=== PATIENT | female | born 1995 | race Caucasian/White ===

== ENCOUNTER 2018-03-07 10:22 | Inpatient (IN) | payer BC, OTHER ==
[~2018-03-07] VITALS: Ht 172.7 cm; Wt 66.7 kg
--- NOTE | 2018-03-08 23:00 | NUR ---
INTAKE ASSESSMENT Pt presented with extreme anxiety,restlessness,c/o having hot and cold flashes,general bodyache,accompanied with nasal drainage. Pt states using multiple substances including heroin,xanax,methadone,cocaine,marijuana and also had a mixed drink today.V/S are stable,speech is clear and coherent,pt is able to ambulate with a steady gait.Pt is in a stable condition to proceed to [facility].
[2018-03-09] VITALS: BP 124/69
--- NOTE | 2018-03-09 | NUR ---
ADMISSION NOTE HT=5 FEET, 8 INCHES. WT= 147 POUNDS. ALLERGIES - PENICILLIN,AMOXICILLIN,LAMICTAL. REGULAR DIET. COWS=8. Admiiting 23 y/o female to [facility] for medically supervised withdrawals from Opioids.Pt stated that she has been using multiple drugs including Heroin,Methadone,Cocaine,Xanax and Marijuana for 1.5 years.Pt also drinks alcohol occasionally and stated she had a mixed drink on 03-08-18.Pt is alert and oriented x 4,presented in intake with anxiety,restlessness,c/o having hot and cold flashes,body ache and tremors.Pt [place] hx of Anxiety,Bipolar disorder,ADHD, PTSD and withdrawal induced seizures.Skin is warm and moist to touch.Pt has multiple IV salgado on both forearms and neck.She has an abscess on her right forearm,redness on her forehead and right thigh area.Respirations are even and non labored,lungs are clear bilaterally;abdomen is soft and palpable with bowel sounds present in all 4 quadrants.No c/o N/V/D noted.Pt denies AH/VH/SI/HI.Pt does not have a PCP.Pt oriented to room and unit,care plan and safety checks initiated,education material and snacks provided.Dr Florence is made aware of admission.All safety measures in place with bed locked in the lowest position,side rails up x 2,call fraga within reach,will continue to monitor. DRUG USE HX 1)HEROIN-PT USES 1 GRAM OF HEROIN IV DAILY FOR 1.5 YEARS. LAST USED ON 03-08-18 AT 1500. 2)METHADONE-40 TO 80 MGS DAILY PO. LAST USED 40 MGS PO ON 03-08-18 AT 1600. 3)XANAX-2 TO 4 MGS PO OFF AND ON . LAST TAKEN 2 MGS PO A FEW DAYS AGO. 4)COCAINE-1 GRAM IV DAILY. LAST USED ON 03-07-18. 5)MARIJUANA-1 TO 3 GRAMS DAILY. LAST USED ON 03-08-18 AT 1500. DETOX HX GATEWAYS IN 2017 TRANSFORMATIONS IN 2013 AND 2013.
[2018-03-09] MEDS ORDERED: MAGNESIUM HYDROXIDE 30 ML LIQUID UDC PO PRN (00:30)
[2018-03-09] MEDS ORDERED: MIRALAX 17 GM POWD.PACK PO PRN (00:30)
[2018-03-09] MEDS ORDERED: ONDANSETRON 4 MG/2 ML VIAL IM PRN (00:30)
[2018-03-09] MEDS ORDERED: NICOTINE 14 MG/24HR PATCH TD PRN (00:30)
[2018-03-09] MEDS ORDERED: LOPERAMIDE HCL 2 MG CAPSULE PO PRN ×2 (00:30)
[2018-03-09] MEDS ORDERED: LORAZEPAM 2 MG/1 ML VIAL IM PRN (00:30)
[2018-03-09] MEDS ORDERED: ONDANSETRON ODT 4 MG TAB.RAPDIS SL PRN (00:30)
[2018-03-09] MEDS ORDERED: HYDROXYZINE PAMOATE 25 MG CAPSULE PO PRN (00:30)
[2018-03-09] MEDS ORDERED: DICYCLOMINE HCL 20 MG TABLET PO PRN (00:30)
[2018-03-09] MEDS ORDERED: MAG HYDROX/AL HYDROX/SIMETH 30 ML LIQUID UDC PO PRN (00:30)
[2018-03-09] MEDS ORDERED: CLONIDINE HCL 0.1 MG TABLET PO ONE (00:45)
[2018-03-09] MEDS ORDERED: LORAZEPAM 1 MG TABLET PO ONE (00:45)
[2018-03-09 00:56] LABS: *AMPHETAMINE, URINE NEGATIVE (NEGATIVE); *BARBITURATE, URINE NEGATIVE (NEGATIVE); *CANNABINOID, URINE POSITIVE (NEGATIVE); *COCCAINE, URINE POSITIVE (NEGATIVE); *OPIATE, URINE POSITIVE (NEGATIVE); *PHENCYCLIDINE SCREEN,URINE NEGATIVE (NEGATIVE)
[2018-03-09 00:58] LABS: *URINE HCG, QUAL NEGATIVE (NEGATIVE)
[2018-03-09 01:24] LABS: ALANINE AMINOTRANSFERASE 36 U/L (14-59); ALKALINE PHOSPHATASE 111 U/L (50-136); ASPARTATE AMINOTRANSFERASE 49 U/L (15-37); BILIRUBIN,TOTAL 0.6 mg/dL (0.2-1.0); CARBON DIOXIDE 33 mmol/L (21-32); CHLORIDE 97 mmol/L (98-107); CREATININE 0.7 mg/dL (0.6-1.3); GLUCOSE 101 mg/dL (74-106); MAGNESIUM 1.9 mg/dL (1.8-2.4); TOTAL PROTEIN, SERUM 7.6 g/dL (6.4-8.2); UREA NITROGEN, BLOOD 7 mg/dL (7-18)
[2018-03-09 01:25] LABS: BASOPHILS % (AUTO) 0.8 % (0.0-2.0); EOSINOPHILS # (AUTO) 0.1 K/uL (0.0-0.7); EOSINOPHILS % (AUTO) 2.1 % (0.0-7.0); HEMATOCRIT 33.7 % (31.2-41.9); HEMOGLOBIN 11.6 g/dL (10.9-14.3); LYMPHOCYTES # (AUTO) 0.9 K/uL (20.0-40.0); LYMPHOCYTES % (AUTO) 27.8 % (20.5-51.5); MEAN CORPUSCULAR HEMOGLOBIN 27.7 uug (24.7-32.8); MEAN CORPUSCULAR HGB CONC 34 g/dL (32.3-35.6); MEAN CORPUSCULAR VOLUME 80.3 fL (75.5-95.3); MONOCYTES # (AUTO) 0.3 K/uL (2.0-10.0); MONOCYTES % (AUTO) 9.4 % (0.0-11.0); NEUTROPHILS % (AUTO) 59.9 % (38.5-71.5); PLATELET COUNT (AUTO) 184 K/uL (179-408); WHITE BLOOD COUNT (AUTO) 3.3 K/uL (3.8-11.8)
[2018-03-09] MEDS ORDERED: DEXT5TAB15 PO (01:26)
[2018-03-09] MEDS ORDERED: GABA800T2 PO (01:26)
[2018-03-09] MEDS ORDERED: TOPI100T PO (01:26)
[2018-03-09] MEDS ORDERED: ARIP5TAB10 PO (01:26)
[2018-03-09 01:37] LABS: THYROID STIMULATING HORMONE 0.276 mIU/mL (0.358-3.740)
[2018-03-09 01:54] LABS: ETHANOL < 3 MG/DL (0-0)
[2018-03-09] MEDS ORDERED: POTASSIUM CHLORIDE 20 MEQ TAB.PRT.SR PO ONE ×2 (02:00→09:00)
[2018-03-09] MEDS: BUPRENORPHINE HCL 2 MG TAB.SUBL SL PRN ×2 (03:48→23:57)
--- NOTE | 2018-03-09 03:49 | NUR ---
PRN SUBUTEX 4 MG SL GIVEN FOR CIWA 12.WILL MONITOR FOR EFFECTIVENESS.
[2018-03-09 04:00] VITALS: BP 110/78
--- NOTE | 2018-03-09 04:50 | NUR ---
SUBUTEX REASSESSMENT PT IS CALM AND RESTING IN BED WITH EYES CLOSE.BREATHING IS EVEN AND NON LABORED.NO S/S OF DISTRESS NOTED.UNABLE TO REASSESS FOR COWS AT THIS TIME.WILL CONTINUE TO MONITOR.
[2018-03-09] MEDS: IBUPROFEN 600 MG TABLET PO PRN (05:53)
[2018-03-09] MEDS: CLONIDINE HCL 0.1 MG TABLET PO PRN (05:53)
[2018-03-09] MEDS: METHOCARBAMOL 750 MG TABLET PO PRN ×2 (05:53→23:56)
[2018-03-09] MEDS: LORAZEPAM 1 MG TABLET PO PRN ×2 (05:53→20:58)
--- NOTE | 2018-03-09 05:55 | NUR ---
PRN MEDS PT C/O INCREASED ANXIETY,RESTLESSNESS,CHILLS,MUSCLES ACHES,HEADACHE AND TREMORS.PRN CLONIDINE,MOTRIN AND ROBAXIN GIVEN ORDERED.PRN ATIVAN GIVEN FOR CIWA 12.WILL MONITOR FOR EFFECTIVENESS.
[2018-03-09] MEDS ORDERED: CLON0.1T PO (06:22)
[2018-03-09] MEDS ORDERED: EMOL20CR TP (06:22)
[2018-03-09] MEDS ORDERED: BIOT1CAP3 PO (06:22)
[2018-03-09] MEDS ORDERED: TEVA (06:22)
--- NOTE | 2018-03-09 07:00 | NUR ---
PRN MEDS ARE EFFECTIVE IN REDUCING SYMPTOMS.PT IS CALM AND RESTING IN BED AT THIS TIME,APPEARS TO BE SLEEPING.WILL CONTINUE TO MONITOR
--- NOTE | 2018-03-09 07:30 | NUR ---
Start of Shift Manager Critical Care received report on 23 year old female admitted on 03/08/18 for medical management of Benzodiazepine, Opiate and Cocaine withdrawals. Pt endorses allergies to PCN, Amoxicillian and Lamotrigine, full code and regular diet. Pt denies any PMH, except for [id number] related seizures, with a PPH to include anxiety, PTSD, ADHD and Bipolar DO. Pt has an abscess on right forearm. Pt was administered Ativan(anxiety), Clonidine(anxiety), Motrin(pain) and Subutex(withdrawals) as PRN on NOC, per report. Last reported COWS 12. Pt to be started on Subutex taper this am. Manager Critical Care encounters pt in pts room. Pt is A/O x4, makes her needs known and is demanding, irritable and entitled. Pt demanding to smoke. Bed in low position with wheels locked and side rails up for safety. Will continue to monitor, support and encourage according to plan of care.
--- NOTE | 2018-03-09 07:35 | NUR ---
END OF SHIFT END OF SHIFT PT IS A 23 Y/O FEMALE ADMITTED FOR OPIOID WITHDRAWALS.SHE RECEIVED PRN MEDS:ATIVAN,SUBUTEX,CLONIDINE,MOTRIN AND ROBAXIN FOR WITHDRAWAL SYMPTOMS DURING THE NIGHT.LAST COWS 12 AT 0400.PT SLEPT 5 HRS,FLUID INTAKE WAS 500 MLS,VOIDED X 1.PT IS A/O X 4.PT ENDORSED TO AM SHIFT NURSE IN A STABLE CONDITION
[2018-03-09 08:17] VITALS: BP 109/58
[2018-03-09] MEDS: GABAPENTIN 400 MG CAPSULE PO SCH ×3 (08:33→20:59)
[2018-03-09] MEDS: SULFAMETH/TRIMETH 800/160 MG TABLET PO SCH ×2 (08:33→20:57)
[2018-03-09] MEDS: LACTOBACILLUS RHAMNOSUS GG 1 EACH CAPSULE PO SCH ×2 (08:33→20:57)
[2018-03-09] MEDS: NEOMY/BACITRAC/POLYMI OINT 28.35 GM TUBE TOP SCH ×2 (08:37→16:01)
[2018-03-09] MEDS ORDERED: BUPRENORPHINE HCL 2 MG TAB.SUBL SL SCH (09:00)
[2018-03-09 12:30] VITALS: BP 125/53
[2018-03-09] MEDS: BUPRENORPHINE HCL 2 MG TAB.SUBL SL SCH ×3 (13:17→20:59)
[2018-03-09 16:51] VITALS: BP 101/56
--- NOTE | 2018-03-09 18:44 | NUR ---
End of Shift Marketing And Outreach Coordinator provided report on 23 year old female admitted on 03/08/18 for medical management of Benzodiazepine, Opiate and Cocaine withdrawals. Pt endorses allergies to PCN, Amoxicillian and Lamotrigine, full code and regular diet. Pt denies any PMH, except for withdrawal related seizures, with a PPH to include anxiety, PTSD, ADHD and Bipolar DO. Pt has an abscess on right forearm, assessed by surgical ELECTRIFICATION ADVISER, with no new orders received. NO PRN medication administered this shift. Pt was started on a Subutex taper and is tolerating well, Last COWS 15, recorded at 1600. Pt is A/O x4, makes her needs known and is demanding, irritable and entitled. Pt has rested thru out the shift and is lethargic and somnolent at times. Pt is appropriate in responses and participates in treatment. Bed in low position with wheels locked and side rails up for safety.
--- NOTE | 2018-03-09 19:30 | NUR ---
Start of Shift Pt is a 23 y/o female admitted 03/08/18 for medically managed withdrawal/detox from Xanax, Heroin, Methamphetamine salts, Cocaine/Marijuana. Endorsement recd from day nurse. Pt is a full code, on a regular diet with allergies to PCNs, Amoxicillin, and Lamotrigine. Pt is on day 1 of a 5 day Subutex taper with Ativan PRN. Hx of withdrawal induced seizures, safety/seizure precautions in place. Pt found in room in bed, arousable to loud voice. Pt extremely drowsy, no c/os at present. Evening med reviewed with pt, no PRN requests made. Will continue to monitor promptly attending to all pt needs
[2018-03-09 20:00] VITALS: BP 118/50
[2018-03-09] MEDS: TOPIRAMATE 100 MG TABLET PO SCH (20:58)
[2018-03-09] MEDS ORDERED: ARIPIPRAZOLE 5 MG TABLET PO SCH (21:00)
[2018-03-09] MEDS: TRAZODONE 50 MG TABLET PO PRN (23:56)
--- NOTE | 2018-03-09 23:57 | NUR ---
PRN Meds Subutex 4mg SL for CIWA of 17, Robaxin 750mg PO for B/A /, Trazodone 50mg PO for insomnia administered. Will continue to monitor, reassessing in 1 hour.
[2018-03-10] VITALS: BP 121/63
--- NOTE | 2018-03-10 00:57 | NUR ---
PRN Meds Subutex 4mg SL, Robaxin 750mg PO and Trazodone 50mg PO given 1 hour prior. At present, pt in bed in darkened rm, reports feeling drowsy. Meds effective
--- NOTE | 2018-03-10 04:00 | NUR ---
VS's, COWS Deferred VS's and COWS deferred r/t pt sleeping/refused. RR 14, even and nonlabored. Will continue to monitor patient until morning endorsement.
--- NOTE | 2018-03-10 07:04 | NUR ---
End of Shift Pt is a 23 y/o female admitted 03/08/18 for medically managed withdrawal/detox from Xanax, Heroin, Methamphetamine salts, Cocaine/Marijuana. Endorsement recd from day nurse. Pt is a full code, on a regular diet with allergies to PCNs, Amoxicillin, and Lamotrigine. Pt is starting day 2 of a 5 day Subutex taper with Ativan PRN, tolerates with additional PRNs. Hx of withdrawal induced seizures, safety/seizure/fall precautions in place. Green/Yellow abcess on anterior r forearm-healing (cocaine injection site). PRN Ativan 2mg PO given with evening meds, PRN Subutex 4mg SL, Robaxin and Trazodone given 2 hours after evening schedule dose for CIWA of 17 and is A&O x 4. Pt anxious and agitated at time, claimed to be sick and not going to be able to make it till morning scheduled dose. COWS 17 at 0000. Pt insisting on showering before PRN administration at 2355, appearing intoxicated before falling asleep. Pt slept for 5 hours, with 500 mls intake, 1 void and no BMs. Report given in endorsement to day nurse
[2018-03-10 07:08] LABS: HEPATITIS B SURFACE AG Negative (Negative)
--- NOTE | 2018-03-10 07:30 | NUR ---
Start of Shift Dean Of Instruction received report on 23 year old female admitted on 03/08/18 for medical management of Benzodiazepine, Opiate and Cocaine withdrawals. Pt endorses allergies to PCN, Amoxicillian and Lamotrigine, full code and regular diet. Pt denies any PMH, except for withdrawal related seizures, with a PPH to include anxiety, PTSD, ADHD and Bipolar DO. Pt has an abscess on right forearm, examined by NO yesterday with no new orders received. Pt currently on anti-biotics. Pt was administered Ativan(anxiety), Subutex(withdrawals), Robaxin(muscle spasms) and Trazodone(insomnia) as PRN medications on NOC, per report. Last reported COWS 17, last CIWA 17, due to PRN Ativan. Currently on Subutex taper, tolerating well. Dean Of Instruction encounters pt in pts room. Pt is A/O x4, makes her needs known. Linear thought process, clear of speech pattern. Pt is calm and cooperative and pleasant this am. Anxious, with flat affect and depressed mood. Pt has complaints of muscle spasms, nausea, anxiety and sweats. Bed in low position with wheels locked and side rails up for safety. Will continue to monitor, support and encourage according to plan of care.
[2018-03-10 08:10] VITALS: BP 133/70
[2018-03-10] MEDS: TOPIRAMATE 100 MG TABLET PO SCH ×2 (08:22→21:36)
[2018-03-10] MEDS: SULFAMETH/TRIMETH 800/160 MG TABLET PO SCH ×2 (08:22→21:36)
[2018-03-10] MEDS: LACTOBACILLUS RHAMNOSUS GG 1 EACH CAPSULE PO SCH ×2 (08:22→21:36)
[2018-03-10] MEDS: NEOMY/BACITRAC/POLYMI OINT 28.35 GM TUBE TOP SCH ×2 (08:22→17:19)
[2018-03-10] MEDS: BUPRENORPHINE HCL 2 MG TAB.SUBL SL SCH ×3 (08:23→21:41)
[2018-03-10] MEDS: GABAPENTIN 400 MG CAPSULE PO SCH ×3 (08:23→21:36)
[2018-03-10] MEDS ORDERED: TUBERCULIN,PURIF.PROT.DERIV. 5 TU/0.1 ML TEST ID ONE (09:00)
[2018-03-10] MEDS ORDERED: BUPRENORPHINE HCL 2 MG TAB.SUBL SL SCH ×2 (09:00→15:00)
[2018-03-10 09:20] LABS: EOSINOPHILS # (AUTO) 0.1 K/uL (0.0-0.7); MEAN CORPUSCULAR VOLUME 81.6 fL (75.5-95.3); MONOCYTES # (AUTO) 0.4 K/uL (2.0-10.0)
[2018-03-10 09:30] LABS: BILIRUBIN,DIRECT 0.1 mg/dL (0.0-0.2); BILIRUBIN,TOTAL 0.4 mg/dL (0.2-1.0); MAGNESIUM 1.9 mg/dL (1.8-2.4); POTASSIUM 4.1 mmol/L (3.5-5.1); TOTAL PROTEIN, SERUM 8.1 g/dL (6.4-8.2)
[2018-03-10 09:33] LABS: BASOPHILS % (AUTO) 0.9 % (0.0-2.0); EOSINOPHILS % (AUTO) 3.1 % (0.0-7.0); LYMPHOCYTES % (AUTO) 26.9 % (20.5-51.5); MEAN CORPUSCULAR HEMOGLOBIN 27.3 uug (24.7-32.8); MEAN CORPUSCULAR HGB CONC 34 g/dL (32.3-35.6); MONOCYTES % (AUTO) 10.6 % (0.0-11.0); NEUTROPHILS # (AUTO) 2.3 K/uL (1.8-8.9); NEUTROPHILS % (AUTO) 58.5 % (38.5-71.5); PLATELET COUNT (AUTO) 216 K/uL (179-408); WHITE BLOOD COUNT (AUTO) 3.9 K/uL (3.8-11.8)
[2018-03-10 09:34] LABS: HEMATOCRIT 37.5 % (31.2-41.9); HEMOGLOBIN 12.6 g/dL (10.9-14.3)
[2018-03-10 09:40] LABS: THYROID STIMULATING HORMONE 0.371 mIU/mL (0.358-3.740)
[2018-03-10] MEDS: ARIPIPRAZOLE 5 MG TABLET PO SCH (09:53)
--- NOTE | 2018-03-10 09:58 | NUR ---
Abscess Dressing Pt seen by Dr. Roldan CYBER SYSTEMS ENGINEER, Trena. CYBER SYSTEMS ENGINEER recommended possible incision and drainage of upper right thigh, dependent on evaluation tomorrow. CYBER SYSTEMS ENGINEER provided orders for K-Pad. Pt requested to cover right wrist abscess to avoid picking at scab. CYBER SYSTEMS ENGINEER recommended a gauze dressing to cover abscess. Branch Service Representative flushed area with normal saline and covered with 4x4 gauze, pt tolerated well. Will continue to monitor, support and encourage according to plan of care.
--- NOTE | 2018-03-10 10:07 | NUR ---
PRN Ativan Pt complain of anxiety 610. Director External Communications performed a CIWA assessment with a score of 14. Director External Communications administered 2mg per MD order. Pt tolerated well. Will continue to monitor, support and encourage according to plan of care.
[2018-03-10] MEDS: LORAZEPAM 1 MG TABLET PO PRN ×2 (10:27→17:19)
--- NOTE | 2018-03-10 11:25 | NUR ---
Ativan Re-Assessment CIWA re-assessment at 11, medication effective. Pt states her anxiety has improved, " feeling a bit better." Will continue to monitor, support and encourage according to plan of care.
[2018-03-10] MEDS ORDERED: MIRALAX 17 GM POWD.PACK PO ONE (12:00)
[2018-03-10] MEDS ORDERED: CLONIDINE HCL 0.1 MG TABLET PO ONE (12:00)
[2018-03-10 12:30] VITALS: BP 122/88
[2018-03-10] MEDS: DOCUSATE SODIUM 250 MG CAPSULE PO SCH (13:02)
--- NOTE | 2018-03-10 13:30 | NUR ---
K-Pad Dance Artist set up machine and pre-heated machine. Pt wrapped pad around her affected right thigh and began resting. Pt had pad on for 40 minutes and then it was removed by database report writer. Pt tolerated well, with no [id number] comments, questions or concerns. Will continue to monitor, support and encourage according to plan of care.
[2018-03-10 16:59] VITALS: BP 122/70
--- NOTE | 2018-03-10 17:19 | NUR ---
PRN Ativan(2 mg) Fine Grader performed CIWA 14, d/t pt's anxiety, irritability, and motor agitation. Fine Grader administered medication per MD order and pt tolerated well. Will continue to monitor, support and encourage according to plan of care.
--- NOTE | 2018-03-10 18:19 | NUR ---
Ativan Re-Assessment Pt endorses minor relief and remains anxious about her next medications. Dryer And Washer Mechanic offered non-pharmacological interventions. Will continue to monitor, support and encourage according to plan of care.
--- NOTE | 2018-03-10 19:09 | NUR ---
End of Shift Data Processing Control Clerk provided report on 23 year old female admitted on 03/08/18 for medical management of Benzodiazepine, Opiate and Cocaine withdrawals. Pt endorses allergies to PCN, Amoxicillian and Lamotrigine, full code and regular diet. Pt denies any PMH, except for withdrawal related seizures, with a PPH to include anxiety, PTSD, ADHD and Bipolar DO. Pt has an abscess on right forearm, examined by TELEVISION WRITER again today, TELEVISION WRITER had no new orders, but pt requested a dressing and TELEVISION WRITER agreed. TELEVISION WRITER also examined pts right thigh for an abscess and ordered K-Pad and is most likely to return tomorrow for an I&D of the right thigh. Pt currently on anti-biotics. Pt was administered Ativan 2mg(withdrawals) as PRN medication this shift. Last reported COWS 16 and last CIWA 14, due to PRN Ativan. Currently on Subutex taper, tolerating well. Pt is A/O x4, makes her needs known. Linear thought process, clear of speech pattern. Pt calm and cooperative, until 1714 when pt became angry, irritable and agitated. Pt is anxious, with flat affect and depressed mood. Pt complaints consist of sweats, anxiety, motor agitation and nausea. Pt has not had a BM since arriving. Bed in low position with wheels locked and side rails up for safety.
--- NOTE | 2018-03-10 19:10 | NUR ---
Start of shift note Received report from day shift nurse. Pt is a 23 yo female, A+Ox4, presenting to [facility] for Opiate withdrawal. Pt noted to be restless, anxious, and agitated. Pt has HX of Anxiety, PTSD, ADHD, Bipolar disorder, and Seizure which will be monitored during shift. Pt is on 5 day Subutex taper, tolerated well. Pt is cooperative and compliant with all aspects of care. Respirations even and unlabored. Will continue to monitor.
[2018-03-10 20:10] VITALS: BP 124/57
[2018-03-10] MEDS: BACLOFEN 10 MG TABLET PO SCH (21:36)
[2018-03-10] MEDS: CLONIDINE HCL 0.1 MG TABLET PO SCH (21:36)
[2018-03-11] MEDS: LORAZEPAM 1 MG TABLET PO PRN ×3 (00:42→22:08)
--- NOTE | 2018-03-11 00:42 | NUR ---
PRN Ativan 2mg Pt c/o anxiety and noted with CIWA: 14. PRN Ativan 2mg given and tolerated well. Will reassess within 1 HR. Will continue to monitor.
[2018-03-11 00:56] VITALS: BP 124/77
--- NOTE | 2018-03-11 01:30 | NUR ---
PRN Ativan 2mg Reassessment Medication effective. Pt expresses reduction in anxiety with CIWA: 11. No s/s of ASE noted at this time. Respirations even and unlabored. Will continue to monitor.
[2018-03-11] MEDS: TRAZODONE 50 MG TABLET PO PRN (02:23)
--- NOTE | 2018-03-11 02:28 | NUR ---
PRN TRAZODONE Pt complains of difficulty falling asleep. PRN Trazodone administered as ordered. Safety measures in place. Will monitor.
--- NOTE | 2018-03-11 03:20 | NUR ---
PRN Trazodone Reassessment Medication effective. Pt is resting well in bed. No s/s of ASE noted at this time. Respirations even and unlabored. Will continue to monitor.
[2018-03-11 04:18] VITALS: BP 125/73
--- NOTE | 2018-03-11 07:00 | NUR ---
End of shift note Pt was continuously noted with anxiety, agitation, irritability, restlessness, and moist skin. Pt remained in room for majority of shift except to go smoke on smoking patio, to get food from kitchen, and to interact with other patients in recreational room. Pt remained cooperative and compliant with all aspects of treatment. Pt is on 5 day Subutex taper, tolerated well. Pt was given PRN Ativan 2mg @0042 and PRN Trazodone @0223. Pt slept for a total of 5 HRS. Last COWS: 11 @0400 and Last CIWA: 11 @0130. Respirations even and unlabored. Will endorse to day shift nurse.
--- NOTE | 2018-03-11 07:40 | NUR ---
STAR OF SHIFT Endorse rcvd from incoming nurse, client is in bed, a/o x 4. Client presents with depressed mood, flat affect, anxiety, agitation, goosebump, clammy skin, watery eyes, tremors, and difficulty concentrating. Client stated, "I'm feeling like shit, and I just barely opened my eyes, I know is going to get worst." She reports feeling very anxious, irritable, chills, colds, body aches, nausea, headache, no appetite, and fatigue.Encourage client to increase PO fluid to facilitate detox. Encourage client to participate in group therapy to learn skills to maintain sober. Last CI 11 @ 0400. PRN administered and noted per protocol. Client slept 6 hrs[address] Seizure precautions in place. Bed in lowest/locked position. Side rails x 2 up/padded. Call light within reach.
[2018-03-11 08:06] VITALS: BP 97/50
[2018-03-11] MEDS ORDERED: BUPRENORPHINE HCL 2 MG TAB.SUBL SL SCH ×2 (09:00)
[2018-03-11] MEDS: TOPIRAMATE 100 MG TABLET PO SCH ×2 (09:51→21:35)
[2018-03-11] MEDS: LACTOBACILLUS RHAMNOSUS GG 1 EACH CAPSULE PO SCH ×2 (09:51→21:35)
[2018-03-11] MEDS: GABAPENTIN 400 MG CAPSULE PO SCH (09:51)
[2018-03-11] MEDS: ARIPIPRAZOLE 5 MG TABLET PO SCH (09:51)
[2018-03-11] MEDS: CLONIDINE HCL 0.1 MG TABLET PO SCH ×3 (09:52→21:36)
[2018-03-11] MEDS: NEOMY/BACITRAC/POLYMI OINT 28.35 GM TUBE TOP SCH ×2 (09:52→17:00)
[2018-03-11] MEDS: DOCUSATE SODIUM 250 MG CAPSULE PO SCH (09:52)
[2018-03-11] MEDS: BACLOFEN 10 MG TABLET PO SCH ×2 (09:52→21:34)
[2018-03-11] MEDS: SULFAMETH/TRIMETH 800/160 MG TABLET PO SCH ×2 (09:52→21:36)
[2018-03-11 12:00] VITALS: BP 99/56
[2018-03-11] MEDS ORDERED: MAGNESIUM CITRATE 296 ML BOTTLE PO ONE (13:00)
--- NOTE | 2018-03-11 13:58 | NUR ---
PRN Ativan 1 mg PO for CIWA 12, d/t pt's anxiety, irritability, and motor agitation. Call light within reach.
[2018-03-11] MEDS: GABAPENTIN 300 MG CAPSULE PO SCH ×2 (14:01→21:34)
--- NOTE | 2018-03-11 14:58 | NUR ---
Reassess PRN Ativan 1 mg, CIWA 7, client reports a decrease in anxiety, irritability, and agitation. Call light within reach.
--- NOTE | 2018-03-11 15:12 | NUR ---
Client was prompted to attend group counseling sessions and agreed to do so.
[2018-03-11] MEDS: BUPRENORPHINE HCL 2 MG TAB.SUBL SL SCH ×2 (15:34→21:35)
[2018-03-11 16:55] VITALS: BP 105/57
[2018-03-11] MEDS ORDERED: LIDOCAINE 1%-EPI 1:100,000 20 ML VIAL TP ONE (18:00)
--- NOTE | 2018-03-11 18:00 | NUR ---
Lidocaine schedule at 1800 is to be used during I&D procedure, Dr. Roldan called, he will be in later on today.
--- NOTE | 2018-03-11 19:29 | NUR ---
END OF SHIFT Endorse given to incoming nurse, client is in bed, a/o x 4. Client continues to present with depresses mood, flat affect, anxious, irritable, chills, colds, body aches, nausea, headache, constipation, and fatigue. Client is compliant with 2/3 of group therapy. Client consumes <75% meals. Adequate PO fluid 1651mL, void x 4. Last CIWA / 10 @ 1600.Client is schedule for I& D of R thigh, R forearm by Dr. reyes, consent signed. PRN administered and noted per protocol. Seizure precautions in place. Bed in lowest/locked position. Side rails x 2 up/padded. Call light within reach.
--- NOTE | 2018-03-11 19:57 | NUR ---
START OF SHIFT NOTE Rcvd report from outgoing nurse, pt. is currently in group therapy session. Pt. is a 23 y/o female A/O to person, place, time, and purpose. Pt. was admitted for medically supervised withdrawal from Heroin, Xanax, Methamphetamines, Cocaine, and Marijuana. Pt. presents w/ agitation, anxiety, lethargy, depressed mood, flat affect, and sweats. Pt. has an abscess on her right thigh that is closed. Pt. has an abscess on her right forearm that is open w/ no drainage. has been notified and will be performing an I&D in the next 24 hrs. PRN Ativan 1mg given @ 1358 for anxiety, noted effective. PRN Magnesium Citrate given for constipation, noted effective. Pt. denies any S/I and H/I. Last CIWA 7 and COWS 10 @ 1600. Call light is within reach. Pt. will continue to be monitored and needs met.
[2018-03-11 20:00] VITALS: BP 124/61
[2018-03-11] MEDS ORDERED: LIDOCAINE 1%-EPI 1:100,000 20 ML VIAL IJ ONE (22:00)
--- NOTE | 2018-03-11 22:08 | NUR ---
PRN ADMINISTRATION PRN Ativan given for increased anxiety, COWS 12. Will reassess in 1 hr.
--- NOTE | 2018-03-11 23:08 | NUR ---
PRN REASSESSMENT Pt. is awake and in her room. Pt. states anxiety has subsided. Pt. is siting down and watching TV.
[2018-03-12] VITALS: BP 105/61
[2018-03-12] MEDS: TRAZODONE 50 MG TABLET PO PRN (00:28)
--- NOTE | 2018-03-12 00:28 | NUR ---
PRN ADMINISTRATION PRN Traxodone 50mg given for insomnia. Pt. states they can't fall asleep. COWS 12. Will reassess in 1 hr.
[2018-03-12] MEDS: NEOMY/BACITRAC/POLYMI OINT 28.35 GM TUBE TOP SCH ×2 (01:14→17:00)
--- NOTE | 2018-03-12 01:28 | NUR ---
PRN REASSESSMENT Pt. is in her room. Pt. is still awake. Pt. stating they can't fall asleep. Educated the pt. on deep breathing and visualization techniques.
--- NOTE | 2018-03-12 04:10 | NUR ---
CIWA AND COWS DEFERRED. V/S REFUSED Pt.is in bed w/ her eyes closed. Pt.'s breathing is even and unlabored.
--- NOTE | 2018-03-12 07:09 | NUR ---
END OF SHIFT NOTE Endorsed pt. to oncoming nurse, pt. is currently in her room. Pt. is a 23 y/o female A/O to person, place, time, and purpose. Pt. was admitted for medically supervised withdrawal from Heroin, Xanax, Methamphetamines, Cocaine, and Marijuana. Pt. continues present w/ agitation, anxiety, irritability, depressed mood, flat affect, and sweats. Pt. has an abscess on her right thigh that is closed. Pt. has an abscess on her right forearm that is open w/ no drainage. has been notified and will be performing an I&D in the next 24 hrs. PRN Ativan 1mg given @ 2208 for increased s/s of withdrawal, COWS 12, noted ineffective. PRN Trazodone 50mg given @ 0028 for insomnia, noted ineffective. Pt. was found utilizing the in room oxygen system. When confronted pt. became agitated and defensive. Pt.s room was searched and pt. was spoken to by MED CARE MANAGER Coconut Cooker and RN. Pt. was cooperative and compliant. Pt.s fluid intake was 796 ml. Pt. voided 1 time and slept for 3.25 hrs. Last CIWA 9 and COWS 12 @ 0000. Call light is within reach.
--- NOTE | 2018-03-12 07:20 | NUR ---
START OF SHIFT: PATIENT IS A 23 YR OLD FEMALE ADMITTED TO [facility] ON 03/08/18 FOR A MEDICALLY SUPERVISED WITHDRAWAL FROM BENZODIAZEPINES ( XANAX) AND OPIATES ( HEROIN IV, METHADONE), SHE IS ON A 5 DAY SUBUTEX TAPER AND THIS IS DAY 3. PRN MEDS GIVEN ON PM SHIFT : ATIVAN AND TRAZODONE, PER SPRINKLER INSTALLER REPORT PATIENT HAD GREAT DIFFICULTY IN FALLING ASLEEP BUT FINALLY SLEPT FOR 5 HOURS. LAST COWS 12 AT MIDNIGHT. SHE IS ASLEEP IN BED AT THIS TIME, BREATHING EVEN AND UNLABORED, SIDE RAILS UPX2. SHE HAS AN OPEN ABSCESS ON HER RIGHT FA AND CLOSED ABSCESS ON RIGHT THIGH, PT TO BE SEEN BY MD TODAY FOR I&D. CONTINUE TO FOLLOW MD PLAN OF CARE.
[2018-03-12 08:00] VITALS: BP 98/44
[2018-03-12] MEDS: SULFAMETH/TRIMETH 800/160 MG TABLET PO SCH ×2 (08:11→20:05)
[2018-03-12] MEDS: LORAZEPAM 1 MG TABLET PO PRN ×3 (08:11→20:04)
[2018-03-12] MEDS: DOCUSATE SODIUM 250 MG CAPSULE PO SCH (08:11)
[2018-03-12] MEDS: ARIPIPRAZOLE 5 MG TABLET PO SCH (08:12)
[2018-03-12] MEDS: TOPIRAMATE 100 MG TABLET PO SCH ×2 (08:12→20:05)
[2018-03-12] MEDS: LACTOBACILLUS RHAMNOSUS GG 1 EACH CAPSULE PO SCH ×2 (08:12→20:05)
[2018-03-12] MEDS: BUPRENORPHINE HCL 2 MG TAB.SUBL SL SCH ×3 (08:12→20:04)
[2018-03-12] MEDS: GABAPENTIN 300 MG CAPSULE PO SCH ×3 (08:12→20:05)
[2018-03-12] MEDS: BACLOFEN 10 MG TABLET PO SCH ×2 (08:12→20:06)
[2018-03-12] MEDS: CLONIDINE HCL 0.1 MG TABLET PO SCH ×3 (08:13→20:06)
--- NOTE | 2018-03-12 08:20 | NUR ---
PRN ATIVAN ATIVAN 1MG PO GIVEN FOR CIWA 12 AND SYMPTOMS OF WITHDRAWAL INCLUDING : AGITATION, ANXIETY AND SWEATS. WILL CONT TO MONITOR
[2018-03-12] MEDS ORDERED: BUPRENORPHINE HCL 2 MG TAB.SUBL SL SCH (09:00)
--- NOTE | 2018-03-12 09:20 | NUR ---
ATIVAN REASSESS PATIENT IS IN A DEEP SLEEP, BREATHING EVEN AND UNLABORED, WILL CONT TO MONITOR
[2018-03-12 12:00] VITALS: BP 88/50
--- NOTE | 2018-03-12 14:32 | NUR ---
PRN ATIVAN ATIVAN 2MG PO GIVEN FOR S/S OF WITHDRAWAL . AGITATION, FLUSHED SKIN, DIAPHORESIS VALERIA Putnam Addendum: 03/12/18 at 1746 by KING MENSAH RN VALERIA
--- NOTE | 2018-03-12 15:32 | NUR ---
PRN REASSESS ATIVAN 2MG PO EFFECTIVE, PATIENT STATES SHE FEELS LESS ANXIOUS /IRRITATED, IT ALSO HELPED KEEP HER CALM DURING I&D OF ABSCESS PERFORMED BY DR MONROE AT 1530
[2018-03-12 16:00] VITALS: BP 113/55
--- NOTE | 2018-03-12 16:15 | NUR ---
PRN CLONIDINE/VISTARIL CLONIDINE 0.1MG PO AND VISTARIL 25MG PO GIVEN FOR C/O INCREASED AGITATION/ANXIETY WILL REASSESS
[2018-03-12] MEDS: CLONIDINE HCL 0.1 MG TABLET PO PRN (16:17)
--- NOTE | 2018-03-12 17:15 | NUR ---
PRN REASSESS MEDICATIONS EFFECTIVE, PT IS SMILING AND INTERACTING WITH PEERS AND STAFF
--- NOTE | 2018-03-12 18:43 | NUR ---
END OF SHIFT: PATIENT IS A 23 YR OLD FEMALE WHO WAS ADMITTED TO [facility] ON 03/08/18 FOR A MEDICALLY SUPERVISED WITHDRAWAL FROM OPIATES AND BENZODIAZEPINES, SHE IS ON A 5 DAY SUBUTEX TAPER AND THIS IS DAY 3. SHE HAD AN I&D OF ABSCESS ON RIGHT THIGH TODAY, ORDERS DAILY DRESSING CHANGE: DRY TO MOIST PACKING CHANGE WITH 4X4, SWAB SENT TO LAB FOR WOUND CULTURE @ 1600. RIGHT LOWER ARM ABSCESS ( NO I&D) JUST CHANGE GAUZE DAILY. PRN MEDICATIONS GIVEN THIS SHIFT: ATIVAN 1MG PO, ATIVAN 2MG PO, CLONIDINE AND VISTARIL. LAST COWS 12 AND CIWA 14 @ 1600. SHE HAD A FLUID INTAKE OF 1600 ML,4 VOIDS AND 1 BM. SHE WAS EXCUSED FROM GROUP TODAY DUE TO IN THE AM SLEEPING TIL NOON BECAUSE SHE DID NOT SLEEP LAST NIGHT AND PM GROUP BECAUSE I&D WAS PERFORMED AT THE TIME GROUP WAS ON. PATIENT APPEARS SLIGHTLY HYPER AT TIMES AND THEN FLAT, LABILE MOODS, HER WITHDRAWAL SYMPTOMS INCLUDE: FLUSHING, IRRITABILITY, ANXIETY, DECREASED APPETITE AND LETHARGY. CONTINUE TO FOLLOW MD PLAN OF CARE. ENDORSED TO FOOT GATHERER.
--- NOTE | 2018-03-12 19:57 | NUR ---
START OF SHIFT NOTE Rcvd report form outgoing nurse, pt. is in her room. Pt. is a 23 y/o female A/O to person, place, time, and purpose. Pt. was admitted for medically supervised withdrawal from Heroin and Xanax. Pt. presents w/ anxiety, agitation, irritability, flat affect, sweats flushed face, and disheveled appearance. PRN Ativan given @ 0830 and 1432 for increased anxiety, noted effective. PRN Clonidine and Vistaril given @ 1400 for increased s/s of withdrawal, noted effective. I&D performed on right thigh abscess, drsg applied. Wet to dry drsg to be applied daily. Pt. denies S/I and H/I. Last CIWA 14 and COWS 12 @ 1600. Call light is within reach. Pt. will continue to be met and needs met.
[2018-03-12 20:00] VITALS: BP 116/70
--- NOTE | 2018-03-12 20:04 | NUR ---
PRN ADMINISTRATION PRN Ativan 2mg given for increased anxiety, COWS 20. Will reassess pt. in 1 hr.
--- NOTE | 2018-03-12 21:04 | NUR ---
PRN REASSESSMENT Pt. states mild relief of anxiety. Pt presenting w/ irritability and agitation. Educated pt. on visualization and redirection of agitation; reading, watching TV, or listening to music.
[2018-03-12] MEDS: IBUPROFEN 600 MG TABLET PO PRN (21:23)
[2018-03-12] MEDS: METHOCARBAMOL 750 MG TABLET PO PRN (21:23)
--- NOTE | 2018-03-12 21:23 | NUR ---
PRN ADMINISTRATION PRN Robaxin 750mg and Motrin 600mg given for pain. Pt. c/o of right thigh pain where she had the I&D performed today. Will reassess pt. in 1 hr.
--- NOTE | 2018-03-12 22:23 | NUR ---
PRN REASSESSMENT Pt. states pain is still 10/10. Pt. presenting w/ restlessness, agitation, and irritability. Educated pt again on visualization and relaxation techniques. Pt. wanting stronger medication. Pt. was redirected. Pt. told to try and sleep.
[2018-03-13] VITALS: BP 114/64
[2018-03-13 04:00] VITALS: BP 110/59
--- NOTE | 2018-03-13 07:22 | NUR ---
END OF SHIFT NOTE Endorsed pt. to oncoming nurse, pt. is in her room. Pt. is a 23 y/o female A/O to person, place, time, and purpose. Pt. was admitted for medically supervised withdrawal from Heroin and Xanax. Pt. continued to present w/ anxiety, agitation, irritability, flat affect, sweats, flushed face, and disheveled appearance. PRN Ativan 2mg given @ 2003 for increased anxiety, noted ineffective. PRN Robaxin 750mg and Motrin 600mg given @ 2122 for right leg pain, noted ineffective by pt. I&D performed on right thigh abscess during previous shift, drsg applied. Wet to dry drsg to be applied daily. Pt.s fluid intake was 850 ml and she voided 2 times. Pt. slept for 5.5 hrs. Pt. had two behavioral incidents. First, during shift change pt. through a tantrum and sat down in the hallway because as she stated I want my Ativan PRN now. Second, pt. slammed her door shut because as she claimed No one wanted to give me pizza. On both occasions the pt. was educated on relaxation and calming techniques, as well as, the rules of the unit. Last CIWA 13 and COWS 15 @ 0400. Call light is within reach.
[2018-03-13 08:00] VITALS: BP 107/56
--- NOTE | 2018-03-13 08:09 | NUR ---
Start of shift Patient 23 y/o female admitted for medically supervised withdrawal of heroin, meth, xanax and cocaine. Pt on 5 day Subutex taper. Patient A&O X4. Presents with restlessness, anxiety, agitation, sweating, chills, fine tremors, reports nausea, stomach cramps, moderate severe headache and body aches. Pt disheveled and room disorganized. Last COWS 15, CIWA 13. I&D performed on right thigh abscess on 03/12/18 and dressing applied. Wet to dry dressing to be applied daily. Patient is compliant with medication regimen. Encourage pt to attend group therapies/sessions to learn new coping skills to prevent relapse. ALLERGIES: PCN, LAMICTAL, AMOXICILLIN. FULL CODE. All safety precautions in place. Call light within reach. Will continue to monitor for withdrawal symptoms.
[2018-03-13] MEDS: TOPIRAMATE 100 MG TABLET PO SCH ×2 (08:32→20:19)
[2018-03-13] MEDS: BACLOFEN 10 MG TABLET PO SCH ×3 (08:32→20:20)
[2018-03-13] MEDS: ARIPIPRAZOLE 5 MG TABLET PO SCH (08:32)
[2018-03-13] MEDS: DOCUSATE SODIUM 250 MG CAPSULE PO SCH (08:32)
[2018-03-13] MEDS: SULFAMETH/TRIMETH 800/160 MG TABLET PO SCH ×2 (08:32→20:20)
[2018-03-13] MEDS: LACTOBACILLUS RHAMNOSUS GG 1 EACH CAPSULE PO SCH ×2 (08:32→20:20)
[2018-03-13] MEDS: GABAPENTIN 300 MG CAPSULE PO SCH ×3 (08:33→20:19)
[2018-03-13] MEDS: CLONIDINE HCL 0.1 MG TABLET PO SCH ×2 (08:33→15:17)
[2018-03-13] MEDS: NEOMY/BACITRAC/POLYMI OINT 28.35 GM TUBE TOP SCH ×2 (08:34→16:45)
[2018-03-13] MEDS: BUPRENORPHINE HCL 2 MG TAB.SUBL SL SCH ×2 (08:34→20:20)
[2018-03-13] MEDS ORDERED: BUPRENORPHINE HCL 2 MG TAB.SUBL SL SCH (09:00)
[2018-03-13] MEDS: IBUPROFEN 600 MG TABLET PO PRN (10:09)
[2018-03-13] MEDS: METHOCARBAMOL 750 MG TABLET PO PRN ×2 (10:09→21:44)
[2018-03-13] MEDS: ACETAMINOPHEN 325 MG TABLET PO PRN ×2 (10:09→21:44)
--- NOTE | 2018-03-13 10:12 | NUR ---
PRN MEDICATIONS PT C/O RIGHT THIGH PAIN #8/ R/T ABSCESS ADMINISTERED MOTRIN 600 MG PO PRN, TYLENOL 650 MG PO PRN ROBAXIN 750 MG PO PRN BODY ACHES
[2018-03-13] MEDS: SODIUM HYPOCHLORITE 0.125% 473 ML BOTTLE TP SCH (11:04)
--- NOTE | 2018-03-13 11:15 | NUR ---
REASSESS- RIGHT THIGH PAIN REMAINS #9/10. MEDICATIONS NOT EFFECTIVE. PN ATTEMPTED DRESSGING CHANGE OF WOUND. PT CAN NOT TOLERATE, PAIN TO INTENSE#9-10/10.
[2018-03-13] MEDS ORDERED: LORAZEPAM 1 MG TABLET PO ONE ×2 (11:30→23:30)
[2018-03-13] MEDS ORDERED: KETOROLAC TROMETHAMINE 30 MG INJ IM ONE ×2 (11:30→23:30)
[2018-03-13] MEDS ORDERED: LORAZEPAM 1 MG TABLET PO PRN (11:30)
--- NOTE | 2018-03-13 11:37 | NUR ---
PRN- TORADOL 30 MG IM 1X FOR WOUND CHANGE AND PAIN #9/10. DR. MCNAIR AWARE IBUPROFEN GIVEN 75 MIN AGO AND AUTHORIZED TORADOL. PRN ATIVAN 2 MG PO 1X FOR ANXIETY AND DRESSING CHANGE OF WOUND.
[2018-03-13 12:00] VITALS: BP 111/77
--- NOTE | 2018-03-13 12:15 | NUR ---
DRESSING CHANGE- COMPLETED DRESSING CHANGE PER ORDER. CLEANED WITH DAKINS SOLUTION, PACKED WITH GAUZE. WOUND IS PINK, SEROSANGUINEOUS DRAINAGE, PAIN DURING DRESSING CHANGE. PT TOLERATED.
--- NOTE | 2018-03-13 12:30 | NUR ---
REASSESS- PAIN IN RIGHT LEG NOW #5/10. PT REPORTS SHE IS LESS ANXIOUS. DRESSING CHANGE COMPLETED.
[2018-03-13] MEDS ORDERED: BACLOFEN 10 MG TABLET PO SCH (15:00)
[2018-03-13] MEDS: DICYCLOMINE HCL 20 MG TABLET PO SCH ×2 (15:17→20:19)
[2018-03-13] MEDS ORDERED: BACL10TA PO (15:54)
[2018-03-13] MEDS ORDERED: GABA-534 PO (15:54)
[2018-03-13] MEDS ORDERED: DICY20TA28 PO (15:54)
[2018-03-13] MEDS ORDERED: HYDR-3895 PO (15:54)
[2018-03-13] MEDS ORDERED: IBUP-1955 PO (15:54)
[2018-03-13] MEDS ORDERED: CLON0.1T14 PO (15:54)
[2018-03-13] MEDS ORDERED: TRAZ-144 PO (15:54)
[2018-03-13 16:00] VITALS: BP 110/63
--- NOTE | 2018-03-13 18:30 | NUR ---
End of shift Patient 23 y/o female admitted for medically supervised withdrawal of heroin, meth, Xanax and cocaine. Pt on a 5 day Subutex taper. Patient A&O X4. Presents with restlessness, anxiety, agitation, sweating, chills, fine tremors, reports nausea, stomach cramps, moderate severe headache and body aches. PRN given today; Tylenol, Motrin, Robaxin. Pt disheveled and room disorganized. Last COWS 15, CIWA 13. I&D performed on right thigh abscess on 03/12/18 and dressing applied. Wet to dry dressing to be applied daily. Patient is compliant with medication regimen. Encourage pt to attend group therapies/sessions to learn new coping skills to prevent relapse. Pt did attend all group therapy sessions today. PO fluids 1806ml, voids x5, no BM. ALLERGIES: PCN, LAMICTAL, AMOXICILLIN. FULL CODE. All safety precautions in place. Call light within reach. Will continue to monitor for withdrawal symptoms. Endorsed to PM shift.
--- NOTE | 2018-03-13 19:25 | NUR ---
START OF SHIFT Patient is a 23-year-old female admitted on 03/08/18 for opiate and benzo withdrawal. Patient is currently on a 5-day Subutex taper; tolerating well. Patients last COWS was 15, last CIWA was 13 per day shift. Patient received PRN Motrin, Tylenol, and Robaxin, which were reported as not effective. Patient also received a one time Ativan and one time Toradol IM, which were somewhat effective. Upon assessment, patient is complaining of the following symptoms: runny nose, watery eyes, yawning, body aches, chills, hot/cold, sweats. Patient complains of pain 10/10 at right thigh were I&D was performed yesterday. Patient is tearful, anxious and agitated. Patient is on fall and seizure precautions with history of withdrawal induced seizure. Safety precautions in place, side rails up x2, bed locked in low position, call light within reach. Will continue to monitor.
[2018-03-13] MEDS: KETOROLAC TROMETHAMINE 30 MG INJ IM PRN (19:53)
--- NOTE | 2018-03-13 19:53 | NUR ---
PRN TORADOL IM Patient complains of pain 10/10 at her right thigh, at I&D site. PRN Toradol 30mg given IM. Safety measures in place, call light within reach. Will reassess in half an hour.
[2018-03-13 20:00] VITALS: BP 136/83
[2018-03-13] MEDS: LORAZEPAM 1 MG TABLET PO PRN (20:19)
--- NOTE | 2018-03-13 20:19 | NUR ---
PRN ATIVAN 2MG Patient has a CIWA of 23; she is extremely agitated, tearful, and anxious. PRN Ativan 2mg given PO for CIWA greater than 12. Safety measures in place, side rails up x2, bed locked in low position, call light within reach. Will monitor for effectiveness.
--- NOTE | 2018-03-13 20:23 | NUR ---
PRN TORADOL IM REASSESSMENT Patient continues to complain of pain 10/10 at her right thigh, at I&D site. Charge nurse notified. Safety measures in place, side rails up x2, bed locked in low position, call light within reach. Will continue to monitor.
[2018-03-13] MEDS ORDERED: CLONIDINE HCL 0.2 MG TABLET PO SCH (21:00)
--- NOTE | 2018-03-13 21:19 | NUR ---
PRN ATIVAN 2MG REASSESSMENT Patient has a CIWA of 19 upon reassessment; she is anxious and agitated. Safety measures in place, side rails up x2, bed locked in low position, call light within reach. Will continue to monitor.
--- NOTE | 2018-03-13 21:44 | NUR ---
PRN TYLENOL AND ROBAXIN Patient reports headache and body aches, 5/10. PRN Tylenol and Robaxin given PO. Safety measures in place, call light within reach. Will monitor for effectiveness.
--- NOTE | 2018-03-13 22:44 | NUR ---
PRN TYLENOL AND ROBAXIN REASSESSMENT Patient reports slight improvement in headache and body aches. PRN Tylenol and Robaxin mildly effective. Safety measures in place, bed locked in low position, side rails up x2, call light within reach. Will continue to monitor.
[2018-03-13] MEDS ORDERED: CLONIDINE HCL 0.1 MG TABLET PO ONE (23:30)
--- NOTE | 2018-03-13 23:32 | NUR ---
BEHAVIOR NOTE Patient removed alcohol swabs from Accu-Check box at nurses' station. Patient states "it was to remove my make-up because I don't have face wash." Patient was moved from room 316 to room 303; room search and body check was conducted. Patient was put on patio restriction with smoking privilege revoked.
[2018-03-14] VITALS: BP 128/80
--- NOTE | 2018-03-14 00:04 | NUR ---
ONE TIME: ATIVAN, CLONIDINE, TORADOL Patient has a CIWA of 20. Patient complains of pain 10/10 at right thigh and is anxious and agitated. One time Ativan 2mg and clonidine 0.1mg with Toradol 30mg IM administered. Safety measures in place, side rails up x2, bed locked in low position, call light within reach. Will monitor for effectiveness.
--- NOTE | 2018-03-14 00:34 | NUR ---
ONE TIME TORADOL REASSESSMENT Patient reports that pain is 8/10 on pain scale but still "very painful." Toradol mildly effective at this time. Will continue to monitor.
--- NOTE | 2018-03-14 01:34 | NUR ---
ONE TIME ATIVAN AND CLONIDINE REASSESSMENT Patient reports feeling "a little better" with current CIWA at 16. One time Clonidine and Ativan effective. Safety measures in place, call light within reach. Will continue to monitor.
[2018-03-14] MEDS: KETOROLAC TROMETHAMINE 30 MG INJ IM PRN (06:22)
--- NOTE | 2018-03-14 06:22 | NUR ---
PRN TORADOL 30MG Patient reports pain 8/10 on pain scale. PRN Toradol given IM. Safety measures in place, side rails up x2, bed locked in low position, call light within reach. Will monitor for effectiveness.
--- NOTE | 2018-03-14 06:52 | NUR ---
PRN TORADOL 30MG REASSESSMENT Patient reports pain 5/10 on pain scale. PRN Toradol effective. Safety measures in place, side rails up x2, bed locked in low position, call light within reach. Will continue to monitor.
--- NOTE | 2018-03-14 07:15 | NUR ---
END OF SHIFT Patient is a 23-year-old female admitted on 03/08/18 for opiate and benzo withdrawal. Patient is currently on a 5-day Subutex taper; tolerating well. Patients last COWS was 17, last CIWA was 19. Patient received PRN Toradol IM, Tylenol PO and Robaxin PO, as well as one time Ativan 2mg and PRN Ativan 2mg. Patient received one time Toradol 30mg IM and one time Clonidine PO. Patient was moved to room 303 for behavioral reasons last night at 2332 after room search and body check. Patient is on patio restriction. Patient slept for 3 hours, total intake of 1,364ml, void x2, stool x0. Patient is on fall and seizure precautions with history of withdrawal induced seizure. Safety precautions in place, side rails up x2, bed locked in low position, call light within reach. Will endorse to day shift.
--- NOTE | 2018-03-14 07:15 | NUR ---
PRN NICOTINE GUM 4 MG GIVEN SINCE PT NOT ABLE TO GO OUT TO SMOKE AND REQUESTS IT.
[2018-03-14] MEDS: NICOTINE POLACRILEX 4 MG GUM-PK OF TEN BC PRN ×2 (07:21→18:57)
--- NOTE | 2018-03-14 07:30 | NUR ---
Start of shift Patient 23 y/o female admitted for medically supervised withdrawal of heroin, meth, Xanax and cocaine. Pt on a 5 day Subutex taper. Patient A&O X4. Presents with restlessness, anxiety, agitation, sweating, chills, fine tremors, reports nausea, moderate severe headache and body aches. Last COWS 17, CIWA 19. I&D performed on right thigh abscess on 03/12/18 and dressing applied. Wet to dry dressing to be applied daily. Patient is compliant with medication regimen. Encourage pt to attend group therapies/sessions to learn new coping skills to prevent relapse. ALLERGIES: PCN, LAMICTAL, AMOXICILLIN. FULL CODE. All safety precautions in place. Call light within reach. Will continue to monitor for withdrawal symptoms.
[2018-03-14 08:00] VITALS: BP 115/56
[2018-03-14] MEDS: TOPIRAMATE 100 MG TABLET PO SCH ×2 (08:04→20:42)
[2018-03-14] MEDS: BACLOFEN 10 MG TABLET PO SCH (08:04)
[2018-03-14] MEDS: LACTOBACILLUS RHAMNOSUS GG 1 EACH CAPSULE PO SCH ×2 (08:04→20:42)
[2018-03-14] MEDS: GABAPENTIN 300 MG CAPSULE PO SCH ×3 (08:04→20:42)
[2018-03-14] MEDS: SULFAMETH/TRIMETH 800/160 MG TABLET PO SCH ×2 (08:04→20:42)
[2018-03-14] MEDS: METHOCARBAMOL 750 MG TABLET PO PRN ×2 (08:04→20:53)
[2018-03-14] MEDS: ARIPIPRAZOLE 5 MG TABLET PO SCH (08:05)
[2018-03-14] MEDS: LORAZEPAM 1 MG TABLET PO PRN (08:05)
[2018-03-14] MEDS: CLONIDINE HCL 0.1 MG TABLET PO SCH (08:05)
[2018-03-14] MEDS: DICYCLOMINE HCL 20 MG TABLET PO SCH ×3 (08:05→20:42)
--- NOTE | 2018-03-14 08:06 | NUR ---
PRN ROBAXIN 750 MG PO FOR GENERALIZED BODY ACHES PRN ATIVAN 2 MG PO FOR ANXIETY AND CIWA 19
--- NOTE | 2018-03-14 08:15 | NUR ---
REASSESS NICOTINE GUM- PT REPORTS MINIMAL RELIEF STILL CHEWING GUM
[2018-03-14] MEDS ORDERED: DOCUSATE SODIUM 250 MG CAPSULE PO PRN (09:00)
[2018-03-14] MEDS ORDERED: BUPRENORPHINE HCL 2 MG TAB.SUBL SL SCH (09:00)
[2018-03-14] MEDS: SODIUM HYPOCHLORITE 0.125% 473 ML BOTTLE TP SCH (09:01)
[2018-03-14] MEDS: NEOMY/BACITRAC/POLYMI OINT 28.35 GM TUBE TOP SCH (09:01)
--- NOTE | 2018-03-14 09:06 | NUR ---
REASSESS ATIVAN- PT LESS ANXIOUS AND LESS IRRITABLE REASSESS ROBAXIN- PT REPORTS BODY ACHES IMPROVED
--- NOTE | 2018-03-14 09:10 | NUR ---
WOUND- DRESSING CHANGE COMPLETED. WOUND PINK, SEROSANGUINEOUS DRAINAGE. PT TOLERATED WELL.
[2018-03-14] MEDS: ACETAMINOPHEN 325 MG TABLET PO PRN (09:50)
--- NOTE | 2018-03-14 09:56 | NUR ---
PRN TYLENOL 650 MG PO FOR RIGHT LEG PAIN #8/10
--- NOTE | 2018-03-14 11:00 | NUR ---
REASSESS TYLENOL- PT REPORTS RIGHT LEG PAIN #6-7/10, SLIGHTLY EFFECTIVE.
[2018-03-14] MEDS ORDERED: QUETIAPINE FUMARATE 25 MG TABLET PO PRN (11:30)
[2018-03-14 12:00] VITALS: BP 108/65
[2018-03-14] MEDS ORDERED: KETOROLAC TROMETHAMINE 30 MG INJ IM ONE (13:30)
[2018-03-14] MEDS ORDERED: HYDROXYZINE PAMOATE 25 MG CAPSULE PO PRN (13:30)
[2018-03-14] MEDS ORDERED: IBUPROFEN 800 MG TABLET PO PRN (13:30)
[2018-03-14] MEDS ORDERED: BACLOFEN 20 MG TABLET PO ONE (13:30)
[2018-03-14] MEDS ORDERED: CLONIDINE HCL 0.1 MG TABLET PO ONE (13:30)
[2018-03-14] MEDS: ACETAMINOPHEN 325 MG TABLET PO SCH ×2 (14:12→20:42)
[2018-03-14 16:00] VITALS: BP 102/60
[2018-03-14] MEDS: BACLOFEN 20 MG TABLET PO SCH ×2 (16:47→20:42)
[2018-03-14] MEDS: CLONIDINE HCL 0.2 MG TABLET PO SCH ×2 (16:47→22:07)
--- NOTE | 2018-03-14 16:48 | NUR ---
LATE ADMINISTRATION OF CLONIDINE 0.1 MG PO. PER PT REQUEST TO GIVE AFTER GROUP THERAPY
[2018-03-14] MEDS ORDERED: BACLOFEN 10 MG TABLET PO SCH (17:00)
--- NOTE | 2018-03-14 18:32 | NUR ---
End of shift Patient 23 y/o female admitted for medically supervised withdrawal of heroin, meth, Xanax and cocaine. Pt completed 5 day Subutex taper. Pt scheduled for discharged tomorrow, she is going to [facility]. Patient A&O X4. Pt is labile, loud, poor attention, and behavior erratic. Presents with restlessness, anxiety, agitation. Pt c/o sweats, chills, nausea, moderate severe headache and body aches, right leg pain #8/10. Patients complaint symptoms are out of proportion to exam. PRN given today; Ativan, Robaxin, and Tylenol. Last COWS 10, CIWA 10. I&D performed on right thigh abscess on 03/12/18. Wet to dry dressing completed today per orders to right thigh and right wrist. Patient is compliant with medication regimen. Encourage pt to attend group therapies/sessions to learn new coping skills to prevent relapse. Pt attended all group therapies today. PO fluids 2098 ml, Voids X4, BM x1. ALLERGIES: PCN, LAMICTAL, AMOXICILLIN. FULL CODE. All safety precautions in place. Call light within reach. Will continue to monitor for withdrawal symptoms. Endorsed to PM shift.
--- NOTE | 2018-03-14 18:59 | NUR ---
PRN NICOTINE GUM 4 MG PO PER PT REQUEST BECAUSE SHE IS NOT ABLE TO GO OUTSIDE TO SMOKE.
--- NOTE | 2018-03-14 19:15 | NUR ---
START OF SHIFT Patient is a 23-year-old female admitted on 03/08/18 for opiate and benzo withdrawal. Patient has completed a 5-day Subutex taper, tolerated well, scheduled for discharge tomorrow. Patients last COWS was 10, last CIWA 10 per day shift. Patient received several PRN medications during the shift: Nicotine gum x2, Tylenol x2, Clonidine 0.2mg, Baclofen, one time Ativan 2mg. Upon assessment, patient appears disheveled with stains on her clothing. Patient complains of anxiety and states, "I don't want to leave tomorrow." Patient also complains of pain in her right thigh "10" at abscess location. Patient's right thigh appears less inflamed and less irritated upon assessment; day shift changed dressing earlier today. Patient is on fall and seizure precautions, with a history of withdrawal induced seizures. Safety measures in place, side rails up x2, bed locked in low position, call light within reach. Will continue to monitor.
[2018-03-14 20:00] VITALS: BP 106/53
--- NOTE | 2018-03-14 20:54 | NUR ---
PRN ROBAXIN & VISTARIL Patient reports right thigh pain 10/10 and increased anxiety related to scheduled discharge. PRN Robaxin and Vistaril given PO. Safety measures in place, side rails up x2, bed locked in low position, call light within reach. Will monitor for effectiveness.
--- NOTE | 2018-03-14 21:54 | NUR ---
PRN ROBAXIN & VISTARIL REASSESSMENT Patient reports right thigh pain 8/10 and states that anxiety is "still nuha." PRN medications not effective. Safety measures in place, side rails up x2, bed locked in low position, call light within reach. Will continue to monitor.
--- NOTE | 2018-03-14 23:07 | NUR ---
PRN SEROQUEL Patient reports difficulty sleeping and states, "I'm ready for my Seroquel." PRN Seroquel given PO. Safety measures in place, side rails up x2, bed locked in low position, call light within reach. Will monitor for effectiveness.
[2018-03-15] VITALS: BP 105/56
--- NOTE | 2018-03-15 00:07 | NUR ---
PRN SEROQUEL REASSESSMENT Patient reports feeling sleepy but states, "I'm not ready to sleep yet." PRN Seroquel mildly effective. Safety measures in place, side rails up x2, bed locked in low position, call light within reach. Will continue to monitor.
[2018-03-15] MEDS: KETOROLAC TROMETHAMINE 30 MG INJ IM PRN (03:40)
--- NOTE | 2018-03-15 03:40 | NUR ---
PRN TORADOL Patient reports pain at right thigh 8/10 and requests pain medication. PRN Toradol given IM. Safety measures in place, side rails up x2, bed locked in low position, call light within reach. Will monitor for effectiveness.
[2018-03-15 04:00] VITALS: BP 101/58
--- NOTE | 2018-03-15 04:10 | NUR ---
PRN TORADOL REASSESSMENT Patient reports pain at right thigh 5/10. PRN Toradol effective. Safety measures in place, side rails up x2, bed locked in low position, call light within reach. Will continue to monitor.
--- NOTE | 2018-03-15 06:35 | NUR ---
END OF SHIFT Patient is a 23-year-old female admitted on 03/08/18 for opiate and benzo withdrawal. Patient has completed a 5-day Subutex taper, tolerated well, scheduled for discharge today. Patients last COWS was 7, last CIWA 12. Patient received the following PRN medications: Robaxin, Vistaril, Seroquel, and Toradol IM. Patient slept for 5 hours, total intake of 1,377ml, void x3, stool x0. Patient is on fall and seizure precautions, with a history of withdrawal induced seizures. Safety measures in place, side rails up x2, bed locked in low position, call light within reach. Will endorse to day shift.
--- NOTE | 2018-03-15 07:18 | NUR ---
START OF SHIFT: PATIENT IS A 23 YR OLD FEMALE ADMITTED TO [facility] ON 03/08/18 FOR A MEDICALLY SUPERVISED WITHDRAWAL FROM BENZODIAZEPINES( XANAX), OPIATES ( HEROIN IV/ METHADONE), COCAINE AND MARIJUANA. SHE HAS COMPLETED A 5 DAY SUBUTEX TAPER AND IS TO BE DISCHARGED TODAY TO " [facility]". PRN MEDS GIVEN ON PM SHIFT: ROBAXIN, VISTARIL, SEROQUEL AND TORADOL. SHE SLEPT FOR 5 HOURS AND LAST COWS 7 AND CIWA 12 @ 0400. PATIENT IS AWAKE IN ROOM AT THIS TIME PACKING HER BAGS FOR DISCHARGE. CONTINUE TO FOLLOW MD PLAN FOR DISCHARGE.
[2018-03-15 08:00] VITALS: BP 109/59
[2018-03-15] MEDS: GABAPENTIN 300 MG CAPSULE PO SCH (08:43)
[2018-03-15 08:44] VITALS: BP 109/59
[2018-03-15] MEDS: BACLOFEN 20 MG TABLET PO SCH (08:44)
[2018-03-15] MEDS: TOPIRAMATE 100 MG TABLET PO SCH (08:44)
[2018-03-15] MEDS: CLONIDINE HCL 0.2 MG TABLET PO SCH (08:44)
[2018-03-15] MEDS: SULFAMETH/TRIMETH 800/160 MG TABLET PO SCH (08:44)
[2018-03-15] MEDS: ACETAMINOPHEN 325 MG TABLET PO SCH (08:44)
[2018-03-15] MEDS: ARIPIPRAZOLE 5 MG TABLET PO SCH (08:44)
[2018-03-15] MEDS: LACTOBACILLUS RHAMNOSUS GG 1 EACH CAPSULE PO SCH (08:45)
[2018-03-15] MEDS: DICYCLOMINE HCL 20 MG TABLET PO SCH (08:45)
--- NOTE | 2018-03-15 09:56 | NUR ---
DISCHARGE NOTE: PATIENT HAS SIGNED AND DATED ALL DISCHARGE PAPERS, ALL BELONGINGS , PRESCRIPTIONS AND PERSONAL ITEMS PLACED IN ZIP TIED BAG. PATIENT IS STABLE TO DISCHARGE, VS STABLE. PATIENT AMBULATED OFF THE UNIT AND WAS PICKED UP BY PRIVATE CAR " [facility]" FOR TRANSPORT TO " [facility] ".
== END 2018-03-15 09:56 | disposition other institution (70) | DRG 982 ==
LOC: SRC 03-08 22:28
PROVIDERS: ADMIT Internal Medicine; ATTEND Internal Medicine
PROC: HZ2ZZZZ Detoxification Services for Substance Abuse Treatment (ICD-10-PCS; principal; 2018-03-08)
PROC: HZ41ZZZ Group Counseling for Substance Abuse Treatment, Behavioral (ICD-10-PCS; 2018-03-10)
PROC: HZ31ZZZ Individual Counseling for Substance Abuse Treatment, Behavioral (ICD-10-PCS; 2018-03-11)
PROC: 0JBG0ZZ Excision of Right Lower Arm Subcutaneous Tissue and Fascia, Open Approach (ICD-10-PCS; 2018-03-12)
PROC: 0H9HXZZ Drainage of Right Upper Leg Skin, External Approach (ICD-10-PCS; 2018-03-12)
DX: F11.23 Opioid dependence with withdrawal (principal); E87.3 Alkalosis; F31.60 Bipolar disorder, current episode mixed, unspecified; L02.415 Cutaneous abscess of right lower limb; L02.413 Cutaneous abscess of right upper limb; E87.1 Hypo-osmolality and hyponatremia; F10.10 Alcohol abuse, uncomplicated; Y90.0 Blood alcohol level of less than 20 mg/100 ml; F13.10 Sedative, hypnotic or anxiolytic abuse, uncomplicated; E86.1 Hypovolemia; E87.6 Hypokalemia; F14.10 Cocaine abuse, uncomplicated; F12.20 Cannabis dependence, uncomplicated; F90.9 Attention-deficit hyperactivity disorder, unspecified type; Z91.89 Other specified personal risk factors, not elsewhere classified; Z88.1 Allergy status to other antibiotic agents; Z88.0 Allergy status to penicillin; S71.131S Puncture wound without foreign body, right thigh, sequela; S61.531S Puncture wound without foreign body of right wrist, sequela; X78.8XXS Intentional self-harm by other sharp object, sequela; F43.10 Post-traumatic stress disorder, unspecified; Z81.1 Family history of alcohol abuse and dependence; F17.210 Nicotine dependence, cigarettes, uncomplicated; F31.9 Bipolar disorder, unspecified; G47.00 Insomnia, unspecified; K59.03 Drug induced constipation; E87.8 Other disorders of electrolyte and fluid balance, not elsewhere classified; E86.0 Dehydration; E07.81 Sick-euthyroid syndrome
CPT/HCPCS: 36415; 70030-TC; 80307; 80349; 80353; 80361; 82746; 83735; 84443; 84703; 85025; 86592; 86705; 86803; 87070; 87077; 87340; 87806; A4663; G0480; J1885; J3490

== ENCOUNTER 2018-06-16 20:17 | Emergency (ER) | payer BC, OTHER ==
[~2018-06-16] VITALS: Ht 172.7 cm; Wt 52.2 kg
[~2018-06-16 20:17] MED LIST: ARIP5TAB10 PO; BACL10TA PO; CLON0.1T14 PO; DICY20TA28 PO; GABA-534 PO; HYDR-3895 PO; IBUP-1955 PO; TOPI100T PO; TRAZ-213 PO
[2018-06-16] MEDS ORDERED: ONDANSETRON ODT 4 MG TAB.RAPDIS ONE (20:45)
[2018-06-16] MEDS: ONDANSETRON ODT 4 MG TAB.RAPDIS SL ONE (20:46)
--- NOTE | 2018-06-16 21:35 | NUR ---
Ultrasound at bedside.
--- NOTE | 2018-06-16 22:07 | NUR ---
Patient discharged to home in stable conditon. Written and verbal after care instructions given. Patient verbalizes understanding of instructions.
[2018-06-16 22:09] VITALS: BP 131/69
== END 2018-06-16 22:10 | disposition home or self-care (01) ==
LOC: ER 20:19
DX: O26.891 Other specified pregnancy related conditions, first trimester (principal); S09.90XA Unspecified injury of head, initial encounter; R55 Syncope and collapse; Z71.6 Tobacco abuse counseling; F11.10 Opioid abuse, uncomplicated; F15.10 Other stimulant abuse, uncomplicated; O99.331 Smoking (tobacco) complicating pregnancy, first trimester; F17.200 Nicotine dependence, unspecified, uncomplicated; Z3A.01 Less than 8 weeks gestation of pregnancy; X58.XXXA Exposure to other specified factors, initial encounter; Y93.89 Activity, other specified; Y92.89 Other specified places as the place of occurrence of the external cause; Y99.8 Other external cause status
CPT/HCPCS: 36415; 76856; A4663; Q0162